=== PATIENT | male | born 1970 | race Caucasian/White ===

== ENCOUNTER 2016-10-24 13:25 | Outpatient (CLI) | payer BC | END 2016-10-24 23:59 | disposition home or self-care (01) | LOC: WOU 13:25 | PROVIDERS: ATTEND Surgery | DX: N49.3 Fournier gangrene (principal); Z87.891 Personal history of nicotine dependence; K58.9 Irritable bowel syndrome, unspecified; I10 Essential (primary) hypertension; E66.01 Morbid (severe) obesity due to excess calories; Z68.43 Body mass index [BMI] 50.0-59.9, adult; Z71.3 Dietary counseling and surveillance; T81.89XA Other complications of procedures, not elsewhere classified, initial encounter | CPT/HCPCS: 11042; 11045; 87070-TC; 87186-TC; A6253; A6402 ==

== ENCOUNTER 2016-10-31 14:27 | Outpatient (CLI) | payer BC | END 2016-10-31 23:59 | disposition home or self-care (01) | LOC: WOU 14:27 | PROVIDERS: ATTEND Surgery | DX: N49.3 Fournier gangrene (principal); T81.89XA Other complications of procedures, not elsewhere classified, initial encounter; Z87.891 Personal history of nicotine dependence; K58.9 Irritable bowel syndrome, unspecified; I10 Essential (primary) hypertension; E66.01 Morbid (severe) obesity due to excess calories; Z68.43 Body mass index [BMI] 50.0-59.9, adult; Z71.3 Dietary counseling and surveillance; Z80.8 Family history of malignant neoplasm of other organs or systems; Z82.49 Family history of ischemic heart disease and other diseases of the circulatory system | CPT/HCPCS: 11042; 11045; A6253; A6402 ==